=== PATIENT | female | born 1995 | race Caucasian/White ===

== ENCOUNTER 2019-11-08 12:09 | Outpatient (REF) | payer MEDICAID, SELFPAY ==
[2019-11-08 21:39] LABS: Anion Gap 11.2 mmol/L (3-11); BUN 7 mg/dL (7-18); CO2 25.8 mmol/L (21.0-32.0); CREATININE 0.62 mg/dL (0.55-1.02); Calcium 9.4 mg/dL (8.5-10.1); Chloride 104 mmol/L (98-107); Glucose 87 mg/dL (74-106); Sodium 141 mmol/L (136-145)
== END 2019-11-08 12:29 ==
LOC: NCHCN 12:09
PROVIDERS: PCP Nurse Practitioner Community Health; Visit Provider Nurse Practitioner Community Health
DX: R10.31 Right lower quadrant pain (principal); Z87.448 Personal history of other diseases of urinary system
CPT/HCPCS: 80048

== ENCOUNTER 2021-12-27 10:36 | Outpatient (REF) | payer MEDICAID, SELFPAY ==
--- NOTE | 2021-12-27 09:45 | PAPFT_PTH ---
PATIENT: Viky Yang [facility][id number] AGE/SX: 26/F ROOM: RE12/27/[address]: Emily Pond : 1995 BED: DIS: 12/27/2021 SPEC #: [id number] RECD: 12/27/21 17:38 STATUS: JORGE RERiya #: [id number] HEMA: 12/27/21 09:[address]: Emily Pond DEPT: [facility] Cytology RECD BY: Evi Stanton ENTERED: 12/27/21 17:38 SP TYPE: PAPFT MALIK DR: Sammie Duarte Tissues: 1 - CX/ENDOCX FOR PAP SMEARS Procedures: PAP THIN PREP/[facility] Screening Comments: [id number]
== END 2021-12-27 10:37 | disposition home or self-care (01) ==
LOC: NCHCN 10:36
PROVIDERS: PCP Nurse Practitioner Community Health; Visit Provider Registered Nurse
DX: Z00.00 Encounter for general adult medical examination without abnormal findings (principal); Z12.4 Encounter for screening for malignant neoplasm of cervix
CPT/HCPCS: 88142

== ENCOUNTER 2022-08-12 12:13 | Outpatient (REF) | payer MEDICAID, SELFPAY | END 2022-08-12 12:14 | disposition home or self-care (01) | LOC: NCHCN 12:13 | PROVIDERS: PCP Nurse Practitioner Community Health; Visit Provider Nurse Practitioner Family | DX: Z87.440 Personal history of urinary (tract) infections (principal); R82.998 Other abnormal findings in urine | CPT/HCPCS: 87086 ==

== ENCOUNTER 2023-10-10 14:49 | Outpatient (REF) | payer MEDICAID, SELFPAY ==
[2023-10-10 14:16] LABS: Abs Immature Grans 0.02 10^3/uL (0.0-0.06); Absolute Basophil Count 0.06 10^3/uL (0.0-0.2); Absolute Eosinophil Count 0.05 10^3/uL (0.0-0.7); Absolute Lymphocyte Count 2.25 10^3/uL (1.2-3.4); Absolute Monocyte Count 0.44 10^3/uL (0.1-0.8); Absolute Neutrophil Count 3.97 10^3/uL (1.2-6.7); Basophils % 0.9; Eosinophils % 0.7; HCT 39.7 % (36.0-46.0); HGB 13.3 g/dL (11.2-15.7); Immature Grans % 0.3; Lymphocytes % 33.1; MCH 29.4 pg (27.0-33.0); MCHC 33.5 % (32.0-36.0); MCV 88 fL (80-95); MPV 9.3 fL (8.0-11.0); Monocytes % 6.5; Neutrophils % 58.5; Platelet Count 468 10^3/uL (130-400); RBC 4.53 10^6/uL (3.93-5.22); RDW 12.5 % (11.7-14.6); WBC 6.79 10^3/uL (4.4-10.8)
[2023-10-10 14:44] LABS: TSH (W/Ref FT4) 0.99 uIU/mL (0.36-3.74)
[2023-10-10 15:10] LABS: Bilirubin Negative (Negative); Blood Negative (Negative); Clarity Clear (Clear); Glucose Negative (Negative); Ketones Negative (Negative); Leukocyte Esterase Negative (Negative); Nitrite Negative (Negative); Urobilinogen 0.2 mg/dL (Up to 0.2)
== END 2023-10-10 14:50 | disposition home or self-care (01) ==
LOC: NCHCN 14:49
PROVIDERS: PCP Nurse Practitioner Community Health; Visit Provider Internal Medicine
DX: R61 Generalized hyperhidrosis (principal); R82.998 Other abnormal findings in urine
CPT/HCPCS: 81003; 84443; 85025

== ENCOUNTER 2023-10-17 12:20 | Outpatient (REF) | payer MEDICAID, SELFPAY ==
[2023-10-17 15:04] LABS: Abs Immature Grans 0.01 10^3/uL (0.0-0.06); Absolute Basophil Count 0.04 10^3/uL (0.0-0.2); Absolute Eosinophil Count 0.06 10^3/uL (0.0-0.7); Absolute Lymphocyte Count 1.92 10^3/uL (1.2-3.4); Absolute Monocyte Count 0.34 10^3/uL (0.1-0.8); Absolute Neutrophil Count 3.14 10^3/uL (1.2-6.7); Basophils % 0.7; Eosinophils % 1.1; HCT 37.9 % (36.0-46.0); HGB 12.7 g/dL (11.2-15.7); Immature Grans % 0.2; Lymphocytes % 34.8; MCH 29.1 pg (27.0-33.0); MCHC 33.5 % (32.0-36.0); MCV 87 fL (80-95); MPV 9.5 fL (8.0-11.0); Monocytes % 6.2; Platelet Count 416 10^3/uL (130-400); RBC 4.37 10^6/uL (3.93-5.22); RDW 12.3 % (11.7-14.6); RDW-SD 39.4 fL; WBC 5.51 10^3/uL (4.4-10.8)
[2023-10-17 15:29] LABS: ALT 18 U/L (14-59); AST 15 U/L (15-37); Albumin 3.7 g/dL (3.4-5.0); Alkaline Phosphatase 41 U/L (46-116); Anion Gap 8.6 mmol/L (3-11); BUN 10 mg/dL (7-18); Bilirubin, Total 0.4 mg/dL (0.2-1.0); CO2 25.4 mmol/L (21.0-32.0); CREATININE 0.7 mg/dL (0.55-1.02); Chloride 105 mmol/L (98-107); Estimated GFR 120.74 (mL/min/1.73m2); Ferritin 62 ng/mL (8-252); Glucose 99 mg/dL (74-106); Potassium 3.7 mmol/L (3.5-5.1); Sodium 139 mmol/L (136-145)
== END 2023-10-17 12:21 | disposition home or self-care (01) ==
LOC: NCHCN 12:20
PROVIDERS: PCP Nurse Practitioner Community Health; Visit Provider Internal Medicine
DX: R79.89 Other specified abnormal findings of blood chemistry (principal)
CPT/HCPCS: 80053; 82728; 85025

== ENCOUNTER 2024-07-16 17:06 | Outpatient (REF) | payer MEDICAID, SELFPAY ==
--- OUTSIDE RECORDS SUMMARY | 2024-07-16 17:07 | XMS_ITS | Clinical Summary ---
Author Organization [facility] Address [address] [place] [address] Care Team Providers Care Roofing Sales Representative Name Role Phone Tina Bonilla Primary Care Provider Social History Tobacco Use Types Packs/Day Years Used Date Smoking Tobacco: Never Assessed Sex and Gender Information Value Date Recorded Sex Assigned at Not on file Gender Identity Not on file Sexual Orientation Not on file Plan of Treatment Health Maintenance Due Date Last Done Comments Hepatitis C Screen 1995 Hepatitis B Vaccine (1 of 3 - 19+ 3-dose series) 04/02 COVID-19 Vaccine (2022- season) 2023 Viky Yang Personal/Family Self 1995 [address] [facility] [place] [address] Viky Yang Personal/Family Self 1995 [address] [facility] [place] [address] [place] Personal/Family Self 1995 [address] [facility] [place] [address] Britta Yangy Personal/Family Self 1995 [address] [facility] [place] [address] Viky Yang Personal/Family Self 1995 [address] [facility] [place] [address] Viky Yang Personal/Family Self 1995 [address] [facility] [place] [address] Viky Yang Personal/Family Self 1995 [address] [facility] [place] [address] Care Teams Roofing Sales Representative Relationship Specialty Start Date End Date Tina Bonilla [address] [facility] [place] [address] PCP - General Internal Medicine - Primary Care 11/06/23
--- OUTSIDE RECORDS SUMMARY | 2024-07-16 17:07 | XMS_ITS | Encounter Summary ---
Author Organization [facility] Address [address] [place] [address] Care Team Providers Care Packing Machine Tender Name Role Phone Tina Bonilla Primary Care Provider [phone] Encounter Details Date Type Department Care Team (Late st Contact Info) Description 12/28/2021 Lab Requisition [facility] Pathology & Laboratory Medicine - [facility] [address] [place] [address] Emily Pond, [employer] [address] [place] [address] Encounter for general adult medical examination without abnormal findings; Encounter for screening for malignant neoplasm of cervix Social History Tobacco Use Types Packs/Day Years Used Date Smoking Tobacco: Never Assessed Sex and Gender Information Value Date Recorded Sex Assigned at Not on file Gender Identity Not on file Sexual Orientation Not on file documented as of this encounter Plan of Treatment Not on file documented as of this encounter Procedures Procedure Name Priority Date/Time Associated Diagnosis Comments PAP TEST Today 12/27/2021 9:45 EDT Encounter for general adult medical examination without abnormal findings Encounter for screening for malignant neoplasm of cervix documented in this encounter Results * PAP TEST (12/27/2021 9:45 EDT) Specimens A. 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 01/01/2022 10:10 EDT [facility] Attestation . 01/01/2022 10:10 EDT [facility] at 1010 Clinical History See below 01/02/20 10:10 EDT [facility] Performing Lab [facility] 01/01/2022 10:10 EDT [facility] Scanned Images 01/01/2022 10:10 EDT [facility] Papanicolaou smear specimen (specimen) CERVIX UTERI STRUCTURE / Unknown 12/27/2021 9:45 EDT 12/28/2021 11:15 EDT Emily Pond [employer] PATHOLOGY ORDERA BLES [facility] [address] [place] [address] documented in this encounter Visit Diagnoses Diagnosis Encounter for general adult medical examination without abnormal findings Unspecified general medical examination Encounter for screening for malignant neoplasm of cervix Screening for malignant neoplasm of the cervix documented in this encounter Care Teams Packing Machine Tender Relationship Specialty Start Date End Date Tina Bonilla [address] [place] [address] PCP - General Internal Medicine - Primary Care 11/06/23 documented as of this encounter
--- OUTSIDE RECORDS SUMMARY | 2024-07-16 17:07 | XMS_ITS | Referral Summary ---
Author Organization [facility] Address [address] [place] [address] Care Team Providers Care Machine Tool Designer Name Role Phone Tina Bonilla Primary Care Provider [phone] Social History Tobacco Use Types Packs/Day Years Used Date Smoking Tobacco: Never Assessed Sex and Gender Information Value Date Recorded Sex Assigned at Not on file Gender Identity Not on file Sexual Orientation Not on file Plan of Treatment Not on file Care Teams Machine Tool Designer Relationship Specialty Start Date End Date Tina Bonilla [address] [facility] [address] PCP - General Internal Medicine - Primary Care 11/06/23
--- OUTSIDE RECORDS SUMMARY | 2024-07-16 17:08 | XMS_ITS ---
Author Organization Unknown Address [address] [place] [phone] Phone Care Team Providers Care Rounding Machine Operator Name Role Phone December Attending Unavailable JOSIE Snell Primary Unavailable Social History Type Status Start Date End Date Code Code Syst em Smoking History Never smoker (Never Smoked) [id number] SNOMED CT Sex Female Hospital Discharge Instructions Should you have any questions prior to discharge, please contact a member of your healthcare team. If you have left the hospital and have any questions, please contact your primary care physician. Reason For Referral No Data Found Plan of Treatment No Data Found Encounters Encounter Diagnosis Start Date Code Code Sys tem Contraception care education 11/28/2023 [id number] SNOMED-CT Personal Care Team Section Performer Name Performer Role Active Date Inactive Da te
[2024-07-16 21:40] LABS: HCT 41.2 % (36.0-46.0); HGB 13.5 g/dL (11.2-15.7); MCH 28.8 pg (27.0-33.0); MCHC 32.8 % (32.0-36.0); MCV 88 fL (80-95); MPV 9.5 fL (8.0-11.0); Platelet Count 408 10^3/uL (130-400); RBC 4.69 10^6/uL (3.93-5.22); RDW 12.2 % (11.7-14.6); RDW-SD 39.2 fL; WBC 8.05 10^3/uL (4.4-10.8)
== END 2024-07-16 17:07 | disposition home or self-care (01) ==
LOC: NCHCN 17:06
PROVIDERS: PCP Nurse Practitioner Community Health; Visit Provider Internal Medicine
DX: D75.839 Thrombocytosis, unspecified (principal)
CPT/HCPCS: 85027